=== PATIENT | female | born 1945 | race Caucasian/White ===

== ENCOUNTER → 2017-08-14 | Outpatient (CLI) | payer MEDICARE ==
[~2017-08-14] MED LIST: CALC-192 PO; CELE200C PO; ESTR30CR VG; FLAX1000 PO; LORA1TAB46 PO; MULT-464 PO; VITA1CAP PO
== END | disposition home or self-care (01) ==
LOC: CFH 12:40
PROVIDERS: ATTEND Internal Medicine Cardiovascular Disease
DX: I08.0 Rheumatic disorders of both mitral and aortic valves (principal); Z85.3 Personal history of malignant neoplasm of breast
CPT/HCPCS: 93306

== ENCOUNTER → 2017-08-15 | Outpatient (CLI) | payer MEDICARE ==
[~2017-08-15] MED LIST changes: +REGADENOSON 0.4 MG/5 ML SYRINGE ONE
== END | disposition home or self-care (01) ==
LOC: CFH 12:13
PROVIDERS: ATTEND Internal Medicine Cardiovascular Disease
DX: R07.89 Other chest pain (principal); R06.02 Shortness of breath
CPT/HCPCS: 78452; 93017; A9502; J2785

== ENCOUNTER → 2017-11-20 | Outpatient (CLI) | payer MEDICARE ==
[~2017-11-20] MED LIST changes: -REGADENOSON 0.4 MG/5 ML SYRINGE ONE
== END | disposition home or self-care (01) ==
LOC: CFH 08:06
PROVIDERS: ATTEND Nurse Practitioner
DX: Z13.820 Encounter for screening for osteoporosis (principal); M81.0 Age-related osteoporosis without current pathological fracture; M85.80 Other specified disorders of bone density and structure, unspecified site
CPT/HCPCS: 77080

== ENCOUNTER → 2019-09-01 | Outpatient (CLI) | payer MEDICARE, OTHER | END | disposition home or self-care (01) | LOC: CVU 11:23 | PROVIDERS: ATTEND Internal Medicine Cardiovascular Disease | DX: I73.9 Peripheral vascular disease, unspecified (principal); R07.89 Other chest pain; R06.02 Shortness of breath | CPT/HCPCS: 93306; 93931 ==

== ENCOUNTER → 2019-12-17 | Outpatient (CLI) | payer MEDICARE | END | disposition home or self-care (01) | LOC: CFH 14:19 | PROVIDERS: ATTEND Chore Provider | DX: D48.5 Neoplasm of uncertain behavior of skin (principal); R22.0 Localized swelling, mass and lump, head | CPT/HCPCS: 70450 ==

== ENCOUNTER → 2020-05-09 | Outpatient (CLI) | payer MEDICARE | END | disposition home or self-care (01) | LOC: CFH 10:57 | PROVIDERS: ATTEND Nurse Practitioner | DX: M81.0 Age-related osteoporosis without current pathological fracture (principal); E21.3 Hyperparathyroidism, unspecified | CPT/HCPCS: 77080 ==

== ENCOUNTER → 2020-09-27 | Outpatient (CLI) | payer MEDICARE | END | disposition home or self-care (01) | LOC: CFH 12:34 → EDSTATUS 13:00 | PROVIDERS: ATTEND Physician Assistant Surgical | DX: M47.26 Other spondylosis with radiculopathy, lumbar region (principal); M48.061 Spinal stenosis, lumbar region without neurogenic claudication; M51.16 Intervertebral disc disorders with radiculopathy, lumbar region | CPT/HCPCS: 72148 ==

== ENCOUNTER 2020-11-05 10:50 | Inpatient (IN) | payer MEDICARE ==
[~2020-11-05] VITALS: Ht 170.2 cm; Wt 77.5 kg
--- NOTE | 2020-11-05 11:20 | NUR ---
PT TO ROOM FROM LOBBY.
[2020-11-05] MEDS ORDERED: METOPROLOL 1 MG/ML, 5ML IVPush ONE ×2 (11:30→13:00)
[2020-11-05] MEDS ORDERED: SODIUM CHLORIDE FLUSH 10ML SYR IVF ONE (11:30)
[2020-11-05 11:51] LABS: BASOPHILS % (AUTO) 0 % (0-1); EOSINOPHILS % (AUTO) 0 % (1-7); LYMPHOCYTES % (AUTO) 13 % (22-44); MEAN CORPUSCULAR HEMOGLOBIN 30.6 pg (27.0-34.8); MEAN CORPUSCULAR HGB CONC 33.3 g/dL (32.4-35.8); MONOCYTES % (AUTO) 6 % (2-9); NEUTROPHILS % (AUTO) 80 % (42-75); PLATELET COUNT 154 x10^3/uL (130-400); RED BLOOD COUNT 4.69 x10^6/uL (3.82-5.3)
[2020-11-05] MEDS ORDERED: METOPROLOL 1 MG/ML, 5ML ONE ×2 (11:52→13:31)
[2020-11-05 11:58] LABS: ALBUMIN 3.3 g/dL (3.4-5.0); ANION GAP 8 mmol/L (5-15); CALCIUM 8.5 mg/dL (8.5-10.1); CHLORIDE 112 mmol/L (98-107)
[2020-11-05 12:04] LABS: ALANINE AMINOTRANSFERASE 76 U/L (12-78); ALKALINE PHOSPHATASE 54 U/L (45-117); BILIRUBIN,TOTAL 0.6 mg/dL (0.2-1.0); CREATININE 0.91 mg/dL (0.55-1.02); TROPONIN I < 0.015 ng/mL (0.000-0.045)
[2020-11-05 12:19] LABS: MD SCAN
--- NOTE | 2020-11-05 12:40 | NUR ---
ATTEMPTED PIV START X3.
--- NOTE | 2020-11-05 12:54 | NUR ---
PT MEDICATED PER MAR.
--- NOTE | 2020-11-05 13:03 | NUR ---
DR. RODAS AT BEDSIDE TO DISCUSS POC.
--- NOTE | 2020-11-05 13:39 | NUR ---
PT MEDICATED PER AUG. HR CONTINUES TO INREASE TO 130'S.
--- NOTE | 2020-11-05 14:05 | NUR ---
REPORT TO LELA CHRISTIANSON.
[2020-11-05] MEDS ORDERED: RIVA20TA PO (14:16)
[2020-11-05] MEDS ORDERED: OMEP20CA20 PO (14:16)
[2020-11-05] MEDS ORDERED: MEXI150C PO (14:16)
[2020-11-05] MEDS ORDERED: IBAN150T15 PO (14:16)
[2020-11-05] MEDS ORDERED: METO50TA6 PO (14:16)
[2020-11-05] MEDS ORDERED: CYCL1DRO OP (14:16)
[2020-11-05] MEDS ORDERED: CALC0.25 PO (14:16)
[2020-11-05 14:50] VITALS: BP 119/80
[2020-11-05] MEDS ORDERED: DIPHENHYDRAMINE 25 MG CAPSULE PO PRN (16:30)
[2020-11-05] MEDS ORDERED: HYDROcodone/APAP 5/325 TABLET PO PRN (16:30)
[2020-11-05] MEDS ORDERED: METHOCARBAMOL 500 MG TABLET PO PRN (16:30)
[2020-11-05] MEDS ORDERED: morphine SULFATE 10 MG/ML, 1ML IVPush PRN (16:30)
[2020-11-05] MEDS ORDERED: ENALAPRILAT 1.25 MG/ML, 2ML IVPush PRN (16:30)
[2020-11-05] MEDS ORDERED: ACETAMINOPHEN 325 MG TABLET PO PRN (16:30)
[2020-11-05] MEDS ORDERED: ONDANSETRON 2MG/ML, 2ML IVPush PRN (16:30)
[2020-11-05] MEDS ORDERED: ONDANSETRON ODT 4 MG PO PRN (16:30)
[2020-11-05] MEDS: METOPROLOL TARTRATE 50 MG TAB PO SCH (16:47)
[2020-11-05] MEDS: FUROSEMIDE 20 MG/2 ML IV SCH (16:47)
[2020-11-05 19:50] VITALS: BP 122/93
[2020-11-05] MEDS ORDERED: MEXILETINE 150 MG CAPSULE PO SCH (21:00)
[2020-11-05] MEDS ORDERED: MELATONIN 5 MG TABLET PO PRN (23:30)
[2020-11-06 00:21] VITALS: BP 131/100
[2020-11-06] MEDS ORDERED: SIMETHICONE 80 MG CHEW TAB PO ONE (03:30)
[2020-11-06 04:55] LABS: BASOPHILS % (AUTO) 0 % (0-1); EOSINOPHILS % (AUTO) 0 % (1-7); LYMPHOCYTES % (AUTO) 20 % (22-44); MEAN CORPUSCULAR HEMOGLOBIN 30.4 pg (27.0-34.8); MEAN CORPUSCULAR HGB CONC 33.1 g/dL (32.4-35.8); MEAN PLATELET VOLUME 11.5 fL (7.4-10.4); MONOCYTES % (AUTO) 8 % (2-9); NEUTROPHILS % (AUTO) 72 % (42-75); PLATELET COUNT 146 x10^3/uL (130-400); RED BLOOD COUNT 4.76 x10^6/uL (3.82-5.3)
[2020-11-06 05:06] LABS: ANION GAP 6 mmol/L (5-15); CALCIUM 8.9 mg/dL (8.5-10.1); CHLORIDE 106 mmol/L (98-107)
[2020-11-06 05:17] LABS: CREATININE 0.73 mg/dL (0.55-1.02); FREE T4 (FREE THYROXINE) 1.14 ng/dL (0.76-1.46)
[2020-11-06 05:45] LABS: MD SCAN
[2020-11-06] MEDS: METOPROLOL TARTRATE 50 MG TAB PO SCH (05:48)
[2020-11-06] MEDS: OMEPRAZOLE 20 MG CAPSULE.DR PO SCH (05:48)
[2020-11-06 06:40] VITALS: BP 134/76
[2020-11-06] MEDS: CALCITRIOL 0.25 MCG CAPSULE PO SCH (08:46)
[2020-11-06] MEDS: FUROSEMIDE 20 MG/2 ML IV SCH ×2 (08:46→11:48)
[2020-11-06] MEDS: SENNA/DOCUSATE TABLET PO SCH (08:46)
[2020-11-06] MEDS ORDERED: RIVAROXABAN 15 MG TABLET PO SCH (09:00)
[2020-11-06] MEDS: SOTALOL 80MG TABLET PO SCH ×2 (09:25→18:18)
[2020-11-06] MEDS: POTASSIUM CHLORIDE 20 MEQ TAB.ER.PRT PO SCH (09:25)
[2020-11-06] MEDS ORDERED: REGADENOSON 0.4 MG/5 ML SYRINGE ONE (09:27)
[2020-11-06 12:25] VITALS: BP 115/83
[2020-11-06 19:00] VITALS: BP 109/80
[2020-11-07 01:00] VITALS: BP 112/79
[2020-11-07 05:28] LABS: ANION GAP 8 mmol/L (5-15); CALCIUM 8.8 mg/dL (8.5-10.1); CHLORIDE 109 mmol/L (98-107)
[2020-11-07 05:32] LABS: CHOL/HDL RATIO 4.4; CHOLESTEROL, TOTAL 151 mg/dL (140-239); CREATININE 0.74 mg/dL (0.55-1.02); HDL CHOL % 23 % (28-40); HDL CHOLESTEROL (DIRECT) 34 mg/dL (40-60); LDL CHOLESTEROL,CALCULATED 78 mg/dL (54-169); LDL/HDL RATIO 2.3 (0.5-3.0); TRIGLYCERIDES 196 mg/dL (50-200); VLDL CHOLESTEROL 39 mg/dL (0-25)
[2020-11-07] MEDS: OMEPRAZOLE 20 MG CAPSULE.DR PO SCH (06:12)
[2020-11-07] MEDS: SOTALOL 80MG TABLET PO SCH ×2 (06:12→17:42)
[2020-11-07] MEDS: RIVAROXABAN 20 MG TABLET PO SCH (06:12)
[2020-11-07 06:15] VITALS: BP 121/83
[2020-11-07] MEDS: FUROSEMIDE 20 MG/2 ML IV SCH (07:31)
[2020-11-07] MEDS: POTASSIUM CHLORIDE 20 MEQ TAB.ER.PRT PO SCH (07:31)
[2020-11-07] MEDS: METOPROLOL 1 MG/ML, 5ML IVPush PRN ×2 (07:32→10:59)
[2020-11-07] MEDS: CALCITRIOL 0.25 MCG CAPSULE PO SCH (07:32)
[2020-11-07] MEDS: SENNA/DOCUSATE TABLET PO SCH (07:32)
[2020-11-07 10:58] VITALS: BP 128/97
[2020-11-07] MEDS: LISINOPRIL 5 MG TABLET PO SCH ×2 (11:05→20:39)
[2020-11-07 13:38] VITALS: BP 116/79
[2020-11-07 14:18] VITALS: BP 106/71
[2020-11-07 19:02] VITALS: BP 106/67
[2020-11-08 00:56] VITALS: BP 112/78
[2020-11-08 05:14] LABS: ANION GAP 6 mmol/L (5-15); CALCIUM 8.8 mg/dL (8.5-10.1); CHLORIDE 108 mmol/L (98-107)
[2020-11-08 05:16] LABS: CREATININE 0.65 mg/dL (0.55-1.02)
[2020-11-08 07:08] VITALS: BP 113/74
[2020-11-08] MEDS: SENNA/DOCUSATE TABLET PO SCH (08:34)
[2020-11-08] MEDS: LISINOPRIL 5 MG TABLET PO SCH (08:34)
[2020-11-08] MEDS: RIVAROXABAN 20 MG TABLET PO SCH (08:34)
[2020-11-08] MEDS: OMEPRAZOLE 20 MG CAPSULE.DR PO SCH (08:34)
[2020-11-08] MEDS: CALCITRIOL 0.25 MCG CAPSULE PO SCH (08:35)
[2020-11-08] MEDS: POTASSIUM CHLORIDE 20 MEQ TAB.ER.PRT PO SCH (08:35)
[2020-11-08] MEDS: SOTALOL 80MG TABLET PO SCH (08:41)
[2020-11-08] MEDS: FUROSEMIDE 20 MG/2 ML IV SCH (09:29)
[2020-11-08] MEDS ORDERED: LISI5TAB7 PO (10:05)
[2020-11-08] MEDS ORDERED: SOTA80TA18 PO (10:05)
[2020-11-08] MEDS ORDERED: FURO-93 PO (12:30)
[2020-11-08 12:36] VITALS: BP 92/66
== END 2020-11-08 16:05 | disposition home or self-care (01) | DRG 291 ==
LOC: ED 11:22 → EDIP 13:14 → 5SO 14:34 → DCLOUNGE 11-08 15:56
PROVIDERS: ADMIT Internal Medicine; ATTEND Hospitalist
PROC: 5A2204Z Restoration of Cardiac Rhythm, Single (ICD-10-PCS; principal; 2020-11-07 14:00)
DX: I11.0 Hypertensive heart disease with heart failure (principal); J96.01 Acute respiratory failure with hypoxia; D68.69 Other thrombophilia; I50.41 Acute combined systolic (congestive) and diastolic (congestive) heart failure; I42.0 Dilated cardiomyopathy; I73.00 Raynaud's syndrome without gangrene; I49.3 Ventricular premature depolarization; E11.9 Type 2 diabetes mellitus without complications; I08.0 Rheumatic disorders of both mitral and aortic valves; Z20.822 Contact with and (suspected) exposure to COVID-19; I48.0 Paroxysmal atrial fibrillation; Z87.891 Personal history of nicotine dependence; Z90.710 Acquired absence of both cervix and uterus; Z82.49 Family history of ischemic heart disease and other diseases of the circulatory system; Z85.3 Personal history of malignant neoplasm of breast; Z90.13 Acquired absence of bilateral breasts and nipples; Z85.828 Personal history of other malignant neoplasm of skin; Z79.899 Other long term (current) drug therapy; Z88.2 Allergy status to sulfonamides; Z88.0 Allergy status to penicillin
CPT/HCPCS: 36415; 71045; 78452; 80048; 80053; 80061; 83036; 84439; 84443; 84484; 85025; 87635; 92960; 93005; 93017; 93306; 93312; 93321; 93325; 96374; G0378; J2785; A9502; J1940

== ENCOUNTER 2020-12-15 09:40 | Observation (INO) | payer MEDICARE ==
[~2020-12-15] VITALS: Ht 167.6 cm; Wt 80.3 kg
[~2020-12-15 09:40] MED LIST changes: +CALC0.25 PO; +CYCL1DRO OP; +FURO-93 PO; +IBAN150T15 PO; +LISI5TAB7 PO; +METO50TA6 PO; +MEXI150C PO; +OMEP20CA20 PO; +RIVA20TA PO; +SOTA80TA18 PO
[2020-12-15] MEDS ORDERED: PLEASE ENTER HEIGHT AND WEIGHT MC SCH (10:30)
[2020-12-15] MEDS ORDERED: SODIUM CHLORIDE 0.9% 1,000 ML IV SCH (10:30)
[2020-12-15] MEDS ORDERED: VITAMIN B12 (10:31)
[2020-12-15] MEDS ORDERED: GARLIC (10:31)
[2020-12-15] MEDS ORDERED: [UNRECOGNIZED DRUG - OTHER] (10:31)
[2020-12-15] MEDS ORDERED: [UNRECOGNIZED DRUG - OTHER] (10:31)
[2020-12-15] MEDS ORDERED: ALPH300C PO (10:31)
[2020-12-15] MEDS ORDERED: [UNRECOGNIZED DRUG - OTHER] (10:31)
[2020-12-15] MEDS ORDERED: [UNRECOGNIZED DRUG - OTHER] PO (10:31)
[2020-12-15 10:37] VITALS: BP 145/67
[2020-12-15] MEDS ORDERED: VITAMIN C (10:40)
[2020-12-15] MEDS ORDERED: MULT-658 PO (10:40)
[2020-12-15] MEDS ORDERED: VITAMIN D (10:40)
[2020-12-15 11:22] LABS: BASOPHILS % (AUTO) 1 % (0-1); EOSINOPHILS % (AUTO) 1 % (1-7); LYMPHOCYTES % (AUTO) 28 % (22-44); MEAN CORPUSCULAR HEMOGLOBIN 30.6 pg (27.0-34.8); MEAN CORPUSCULAR HGB CONC 33.5 g/dL (32.4-35.8); MEAN PLATELET VOLUME 10.7 fL (7.4-10.4); MONOCYTES % (AUTO) 9 % (2-9); NEUTROPHILS % (AUTO) 61 % (42-75); PLATELET COUNT 123 x10^3/uL (130-400); RED BLOOD COUNT 4.37 x10^6/uL (3.82-5.3)
[2020-12-15] MEDS ORDERED: FENTANYL PF 100 MCG/2ML ONE (11:36)
[2020-12-15] MEDS ORDERED: MIDAZOLAM 1 MG/ML, 5ML ONE (11:36)
[2020-12-15] MEDS ORDERED: LIDOCAINE 1%, 20ML ONE (11:37)
[2020-12-15] MEDS ORDERED: VANCOMYCIN 500 MG ONE (11:37)
[2020-12-15 12:11] LABS: ANION GAP 4 mmol/L (5-15); CALCIUM 8.6 mg/dL (8.5-10.1); CHLORIDE 111 mmol/L (98-107); CREATININE 0.62 mg/dL (0.55-1.02)
[2020-12-15] MEDS ORDERED: HOLD MEDICATION MC PRN (13:00)
[2020-12-15] MEDS ORDERED: VANCOMYCIN PMX 1GM/200ML 200 ML IVPB SCH (13:00)
[2020-12-15] MEDS ORDERED: ACETAMINOPHEN 325 MG TABLET PO PRN (13:00)
[2020-12-15 18:46] VITALS: BP 122/82
[2020-12-15] MEDS: SOTALOL 80MG TABLET PO SCH (18:48)
[2020-12-15 19:28] VITALS: BP 137/86
[2020-12-15] MEDS ORDERED: ZOLPIDEM 5MG TABLET PO PRN (21:00)
[2020-12-15] MEDS: APAP/CODEINE 300/30MG TABLET PO PRN (21:12)
[2020-12-15] MEDS: SODIUM CHLORIDE FLUSH 10ML SYR IVF SCH (21:12)
[2020-12-16] MEDS ORDERED: VANCOMYCIN 1,000 MG in SODIUM CHLORIDE 0.9% 100 ML IV ONE
[2020-12-16 01:15] VITALS: BP 129/82
[2020-12-16] MEDS: APAP/CODEINE 300/30MG TABLET PO PRN ×2 (04:04→10:00)
[2020-12-16] MEDS: SOTALOL 80MG TABLET PO SCH (06:22)
[2020-12-16 06:52] VITALS: BP 134/74
[2020-12-16] MEDS ORDERED: OMEPRAZOLE 20 MG CAPSULE.DR PO SCH (07:30)
[2020-12-16] MEDS: MULTIVITAMIN 1 TABLET PO SCH ×2 (08:15→08:28)
[2020-12-16] MEDS: SODIUM CHLORIDE FLUSH 10ML SYR IVF SCH (08:15)
[2020-12-16] MEDS: CALCITRIOL 0.25 MCG CAPSULE PO SCH ×2 (08:15→08:28)
[2020-12-16] MEDS ORDERED: ACET325T26 PO (08:45)
== END 2020-12-16 12:00 | disposition home or self-care (01) ==
LOC: CACL 09:40 → 5SO 12:48
PROVIDERS: ADMIT Internal Medicine Cardiovascular Disease; ATTEND Internal Medicine Cardiovascular Disease
DX: I49.5 Sick sinus syndrome (principal); I48.91 Unspecified atrial fibrillation; E78.5 Hyperlipidemia, unspecified; I49.3 Ventricular premature depolarization; I73.9 Peripheral vascular disease, unspecified; R93.1 Abnormal findings on diagnostic imaging of heart and coronary circulation; R73.01 Impaired fasting glucose; R53.83 Other fatigue; R94.5 Abnormal results of liver function studies; Z79.899 Other long term (current) drug therapy; Z88.0 Allergy status to penicillin
CPT/HCPCS: 33208; 36415; 71045; 71046; 80048; 85025; 96374; 99156; 99157; C1779; C1785; C1892; G0378; J2250; J3010; J3370; J3490